=== PATIENT | male | born 1985 | race Caucasian/White ===

== ENCOUNTER 2017-09-20 17:45 | Emergency (ER) | payer BC ==
[~2017-09-20] VITALS: Ht 172.7 cm; Wt 83.9 kg
[2017-09-20] MEDS ORDERED: CLINDAMYCIN HCL 300 MG CAPSULE ONE (20:00)
[2017-09-20] MEDS ORDERED: CLINDAMYCIN HCL 150 MG CAPSULE PO ONE (20:00)
[2017-09-20] MEDS ORDERED: NEOMY/BACITRA/POLYMYXIN B OINT UD PACKET TP ONE ×2 (20:00→20:03)
== END 2017-09-20 20:44 | disposition home or self-care (01) ==
LOC: ER 17:45
DX: L03.113 Cellulitis of right upper limb (principal)
CPT/HCPCS: A4663

== ENCOUNTER 2022-01-22 02:28 | Emergency (ER) | payer BC ==
[~2022-01-22] VITALS: Ht 175.3 cm; Wt 86.2 kg
--- NOTE | 2022-01-22 04:02 | NUR ---
pt assigned room and shown restroom where pt is flushing eye for no less than 10 minutes
[2022-01-22] MEDS ORDERED: TETRACAINE HCL 0.5% OPHT DROP 2 ML BOTTLE OP ONE (04:15)
[2022-01-22] MEDS ORDERED: FLUORESCEIN SODIUM 1 MG STRIP OP ONE (04:15)
[2022-01-22] MEDS ORDERED: TETRACAINE HCL 0.5% OPHT DROP 2 ML BOTTLE ONE (04:18)
[2022-01-22] MEDS ORDERED: FLUORESCEIN SODIUM 1 MG STRIP ONE (04:18)
[2022-01-22] MEDS ORDERED: MOXI3DRO EACHEYE (04:33)
[2022-01-22] MEDS ORDERED: KETOROLAC TROMETHAMINE 30 MG INJ ONE (04:33)
[2022-01-22] MEDS ORDERED: NAPR-1164 PO (04:33)
[2022-01-22] MEDS ORDERED: KETOROLAC TROMETHAMINE 30 MG INJ IM ONE (04:45)
[2022-01-22 07:02] VITALS: BP 120/80
== END 2022-01-22 07:03 | disposition home or self-care (01) ==
LOC: ER 02:37
DX: S05.01XA Injury of conjunctiva and corneal abrasion without foreign body, right eye, initial encounter (principal); X58.XXXA Exposure to other specified factors, initial encounter; Y92.89 Other specified places as the place of occurrence of the external cause
CPT/HCPCS: 99283; 96372; J1885; A4663